=== PATIENT | female | born 1975 ===

== ENCOUNTER 2018-02-08 13:33 | Emergency (ER) | payer OTHER ==
[2018-02-08 13:57] VITALS: RESP 18; TEMP 99.2
[2018-02-08] MEDS ORDERED: Lidocaine 5% Patch TD STA (14:31)
--- NOTE | 2018-02-08 14:39 | C.PDOC ---
History Of Present Illness 42 y/o female presents to the ER complaining of bilateral upper back pain ( R>L ) which has become gradually worse over the past 5 days. Pt states that the pain is worse with movement of her arms and body. pain started a few days after a yoga class. Pt reports that she is taking Tylenol without relief. Pt was seen by PMD yesterday; PMD ordered an outpatient renal US and X-ray. Denies having CP , SOB, cough, fever, numbness, tingling. Time Seen by Provider: 02/08/18 14:02 Chief Complaint (Nursing): Back Pain History Per: Patient History/Exam Limitations: no limitations Onset/Duration Of Symptoms: Days Current Symptoms Are (Timing): Still Present Severity: Moderate Past Medical History Reviewed: Historical Data, Nursing Documentation, Vital Signs Vital Signs: Last Vital Signs Temp 99.2 F 02/08/18 13:51 Pulse 68 02/08/18 15:25 Resp 18 02/08/18 15:25 BP 128/68 02/08/18 15:25 Pulse Ox 100 02/08/18 22:05 - Medical History PMH: Asthma Surgical History: No Surg Hx Family History: States: No Known Family Hx - Social History Hx Tobacco Use: No Hx Alcohol Use: No Hx Substance Use: No - Immunization History Hx Tetanus Toxoid Vaccination: No Hx Influenza Vaccination: No Hx Pneumococcal Vaccination: No Review Of Systems Constitutional: Negative for: Fever, Chills Respiratory: Negative for: Cough, Shortness of Breath Musculoskeletal: Positive for: Back Pain. Negative for: Neck Pain Skin: Negative for: Rash Neurological: Negative for: Weakness, Numbness Physical Exam - Physical Exam Appears: Non-toxic, No Acute Distress Skin: Normal Color, Warm, Dry Head: Atraumatic, Normacephalic Eye(s): bilateral: Normal Inspection Nose: Normal Oral Mucosa: Moist Neck: No Midline Cervical Tenderness, Supple Chest: Symmetrical, No Tenderness Cardiovascular: Rhythm Regular Respiratory: Normal Breath Sounds, No Rales, No Rhonchi, No Wheezing Back: No Vertebral Tenderness, Other (bilateral thoracic para vertebral tenderness, right more than left. no swelling, bruising, erythema, warmth, bony point tenderness noted. ) Extremity: Normal ROM, No Tenderness, No Swelling Neurological/Psych: Oriented x3, Normal Speech, Normal Cognition, Normal Motor, Normal Sensation ED Course And Treatment O2 Sat by Pulse Oximetry: 100 (RA) Pulse Ox Interpretation: Normal Medical Decision Making Medical Decision Making: Plan: --Labs --UA --Lidoderm Patch 1510 pt given toradol. ua neg for infection, upreg neg. d/c, get outpatient tests done and f/u with pmd Disposition Counseled Patient/Family Regarding: Studies Performed, Diagnosis, Need For Followup, Rx Given - Disposition Referrals: Tab Jiménez DO [Staff Provider] - Disposition: HOME/ ROUTINE Disposition Time: 15:13 Condition: GOOD Additional Instructions: Please remove lidoderm patches in 12 hours. Take ibuprofen as prescribed. Make appointments for outpatient tests prescribed by Dr Jiménez, then follow up with him. Warm compresses several times a day to painful areas. Return to ER for any worse symptoms. If for any reason. your asthma seems worse when taking ibuprofen,. then stop and use Tylenol instead. Prescriptions: Ibuprofen [Motrin] 600 mg PO TID #30 tab Instructions: Muscle Strain (DC) Forms: General Discharge Instructions, [facility] ([place]ian), Work Excuse - Clinical Impression Clinical Impression: Thoracic back sprain - PA / [employer] / Resident Statement / has reviewed & agrees with the documentation as recorded. - Scribe Statement The provider has reviewed the documentation as recorded by the Sydnieibe Jana Baer Provider Attestation All medical record entries made by the Scribe were at my direction and personally dictated by me. I have reviewed the chart and agree that the record accurately reflects my personal performance of the history, physical exam, medical decision making, and the department course for this patient. I have also personally directed, reviewed, and agree with the discharge instructions and disposition.
[2018-02-08] MEDS ORDERED: Lidocaine 5% Patch TD ONE ×2 (14:45→14:46)
[2018-02-08 14:53] LABS: SQUAMOUS EPITHIAL 1 /hpf (0-5); URINE BILIRUBIN NEGATIVE (NEGATIVE); URINE BLOOD 1+ (NEGATIVE); URINE CLARITY Clear (Clear); URINE COLOR Yellow (YELLOW); URINE GLUCOSE (UA) NORMAL (Normal); URINE LEUKOCYTE ESTERASE NEG Leu/uL (Negative); URINE PROTEIN NEGATIVE (NEGATIVE); URINE UROBILINOGEN NORMAL mg/dL (0.2-1.0)
[2018-02-08 15:26] VITALS: BP 128/68; PULSE 68
[2018-02-08 22:05] VITALS: O2SAT 100
== END 2018-02-08 15:26 | disposition home or self-care (01) ==
LOC: C.ER 13:33
DX: S23.3XXA Sprain of ligaments of thoracic spine, initial encounter (principal); X58.XXXA Exposure to other specified factors, initial encounter; Y93.42 Activity, yoga
CPT/HCPCS: 81001; 96372; 99285; J1885

== ENCOUNTER 2018-12-08 13:30 | Outpatient (CLI) | payer OTHER | END 2018-12-08 13:31 | disposition home or self-care (01) | LOC: C.USIC 13:30 | DX: K21.9 Gastro-esophageal reflux disease without esophagitis (principal) ==